=== PATIENT | female | born 1945 | race Native Hawaiian/Other Pacific Islander ===

== ENCOUNTER → 2018-04-26 14:41 | Outpatient (CLI) | payer BC, SELFPAY ==
[2018-04-26 15:23] LABS: Add Manual Diff / Slide Review NO; Basophils Percent Auto 1.1 % (0-2); Eosinophils Percent Auto 6.9 % (2-4); Hematocrit 41.3 % (36-46); Lymphocytes Percent Auto 33.5 % (25-40); Mean Corpuscular HGB Conc 33.8 % (30-36); Mean Corpuscular Volume 88.7 fL (80-100); Monocytes Percent Auto 9.2 % (3-14); Neutrophils Absolute Auto 3100 /uL (3000-5900); Neutrophils Percent Auto 49.3 % (50-75); Platelet Count 232 X10^3/uL (150-400); Red Blood Cell Count 4.66 X10^6/uL (4.0-5.2); Red Cell Distribution Width 13.6 % (11.6-14.8); White Blood Cell Count 6.2 X10^3/uL (4.5-11.0)
[2018-04-26 15:41] LABS: Creatinine Urine Random 288.3 mg/dL
[2018-04-26 15:54] LABS: Alanine Aminotransferase 105 IU/L (9-52); Albumin 4.2 g/dL (3.5-5.0); Albumin Globulin Ratio 1.2 (1.0-2.8); Alkaline Phosphatase 114 U/L (38-126); Aspartate Aminotransferase 73 IU/L (14-36); BUN Creatinine Ratio 22.9 (6-22); Bilirubin Total 0.9 mg/dL (0.2-1.3); Blood Urea Nitrogen 16 mg/dL (7-17); Calcium 9.4 mg/dL (8.4-10.2); Carbon Dioxide 29 mmol/L (22-32); Chloride 106 mmol/L (98-107); Cholesterol 198 mg/dL (140-199); Estimated Glomerular Filt Rate > 60.0 mL/min (>60); Globulin 3.4 g/dL (1.7-4.1); Glucose 117 mg/dL (80-110); HDL Cholesterol 46 mg/dL (40-60); HEMOLYSIS < 15 (0-50); LDL Cholesterol Calculated 122 mg/dL (<100); Sodium 145 mmol/L (137-145); Total Protein 7.6 g/dL (6.3-8.2); Triglycerides 152 mg/dL (35-150)
[2018-04-26 15:58] LABS: Hemoglobin A1C% w Est Avg Glu 7.1 % (4.0-6.0)
== END ==
PROVIDERS: PCP Internal Medicine; Visit Provider Internal Medicine
DX: E78.00 Pure hypercholesterolemia, unspecified (principal); E11.9 Type 2 diabetes mellitus without complications; M15.0 Primary generalized (osteo)arthritis; I10 Essential (primary) hypertension
CPT/HCPCS: 36415; 80053; 80061; 82570; 83036; 85025

== ENCOUNTER → 2018-05-17 09:41 | Outpatient (CLI) | payer BC, SELFPAY ==
--- NOTE | 2018-05-17 | DI.US.S_ITS ---
PROCEDURE: US ABDOMEN COMPLETE INDICATIONS: ELEVATED LFT'S TECHNIQUE: Real-time scanning was performed of the abdominal and retroperitoneal organs, with image documentation. COMPARISON: None. FINDINGS: Liver: Liver is diffusely increased in echogenicity. No focal hepatic abnormalities identified. Normal hepatic size. Gallbladder: No gallstones identified. Normal gallbladder wall. No pericholecystic fluid. Negative sonographic Maldonado sign. Biliary ducts: Intrahepatic bile ducts are non-dilated. Extrahepatic bile duct caliber measures 4.6 mm. Normal is 6-7 mm or less in diameter, or 10 mm or less post-cholecystectomy. Pancreas: Visualized portions of the pancreas are sonographically normal. Spleen: Spleen is normal in size and homogeneous in echotexture. Kidneys: Kidneys are normal in size and echotexture. Right kidney measures 9.9 cm long; left kidney measures 9.5 cm long. No hydronephrosis or nephrolithiasis. No solid masses. Aorta: Visualized aorta is normal in caliber at less than 3 cm. Iliacs: Proximal common iliac arteries are normal in caliber at less than 2.5 cm. IVC: Intrahepatic inferior vena cava is patent. Miscellaneous: No free abdominal fluid. IMPRESSION: 1. Mildly increased hepatic echogenicity noted possibly related to hepatic steatosis but other sources of hepatocellular disease cannot be excluded. Recommend clinical correlation. Dictated by: Hang [place] Interpreted: Loreta Loo MD on 05/17/2018 at 10:18 Approved by: Loreta Loo MD, PhD on 05/17/2018 at 10:23
--- NOTE | 2018-05-17 | DI.RAD.S_ITS ---
This blank DEXA report has been sent in error by the PACS system. The correct and complete report will be forthcoming in 1-2 days. Thank you for your patience and understanding. Dictated by: Bakari Robledo M.D. on 05/17/2018 at 10:20 Approved by: Bakari Robledo M.D. on 05/17/2018 at 10:20
== END ==
PROVIDERS: PCP Internal Medicine; Visit Provider Internal Medicine
DX: R79.89 Other specified abnormal findings of blood chemistry (principal); M81.0 Age-related osteoporosis without current pathological fracture; Z78.0 Asymptomatic menopausal state; E11.9 Type 2 diabetes mellitus without complications
CPT/HCPCS: 76700; 77080

== ENCOUNTER → 2018-07-31 11:47 | Outpatient (CLI) | payer BC, SELFPAY ==
[2018-07-31 12:34] LABS: Alanine Aminotransferase 47 IU/L (9-52); Albumin 4.3 g/dL (3.5-5.0); Albumin Globulin Ratio 1.4 (1.0-2.8); Alkaline Phosphatase 86 U/L (38-126); Aspartate Aminotransferase 33 IU/L (14-36); Bilirubin Total 0.8 mg/dL (0.2-1.3); Bilirubin Unconjugated 0.7 mg/dL (0.0-1.1); Globulin 3.1 g/dL (1.7-4.1); HEMOLYSIS < 15 (0-50); Total Protein 7.4 g/dL (6.3-8.2)
[2018-07-31 12:50] LABS: Hemoglobin A1C% w Est Avg Glu 7.4 % (4.0-6.0)
[2018-07-31 17:28] LABS: Hep C Virus Ab w/Reflex Quant NEGATIVE s/c (NEGATIVE)
== END ==
PROVIDERS: PCP Internal Medicine; Visit Provider Internal Medicine
DX: M81.0 Age-related osteoporosis without current pathological fracture (principal); E11.9 Type 2 diabetes mellitus without complications; R94.5 Abnormal results of liver function studies
CPT/HCPCS: 36415; 80076; 83036; 86803

== ENCOUNTER → 2018-09-06 10:29 | Outpatient (CLI) | payer BC, SELFPAY ==
--- NOTE | 2018-09-06 | DI.MG.S_ITS ---
BILATERAL DIGITAL SCREENING MAMMOGRAM 3D/2D WITH CAD: 09/06/2018 CLINICAL: Routine screening. Comparison is made to exams dated: 03/16/2017 mammogram, 03/15/2016 mammogram, and 02/12/2015 mammogram - [facility]. The tissue of both breasts is heterogeneously dense. This may lower the sensitivity of mammography. Current study was also evaluated with a Computer Aided Detection (CAD) system. No significant masses, calcifications, or other findings are seen in either breast. There has been no significant interval change. IMPRESSION: NEGATIVE There is no mammographic evidence of malignancy. A 1 year screening mammogram is recommended. This exam was interpreted at Station ID: [id number]. NOTE: For mammograms, a report in lay terms will be sent to the patient. Approximately 15% of breast malignancies will not be visualized mammographically. In the management of a palpable breast mass, a negative mammogram must not discourage biopsy of a clinically suspicious lesion. Electronically Signed By: Matt sandoval/pillo:09/06/2018 11:09:44 letter sent: Normal Exam ACR BI-RADS Category 1: Negative [id number]
== END ==
PROVIDERS: PCP Internal Medicine; Visit Provider Internal Medicine
DX: Z12.31 Encounter for screening mammogram for malignant neoplasm of breast (principal)
CPT/HCPCS: 77063; 77067

== ENCOUNTER 2019-04-03 10:18 | Emergency (ER) | payer BC, SELFPAY ==
[2019-04-03 10:29] VITALS: BP 143/69; PULSE 63; RESP 12; TEMP 37.2; O2SAT 98
--- NOTE | 2019-04-03 10:32 | PC.NURSE ---
Slipped and fell on a wet floor at a restaurant. Patient states she had to take a minute to get back up It all happened so fast, I think I landed on my left side reports tightness in left side of mid to lower back and hjp. Ambulatory into department. Position of comfort sitting upright at edge of bed. Denies C-spine tenderness upon palpation. Denies hitting head or any LOC.
--- NOTE | 2019-04-03 11:22 | ED.BACK ---
HPI - Back Pain/Injury <MALA Phelan-BC - Last Filed: 04/03/19 15:22> General Chief Complaint: Back Pain/Injury Stated Complaint: SLIPPED AND FELL AT RESTUARNT Time Seen by Provider: 04/03/19 11:04 Source: patient Mode of arrival: ambulatory Limitations: no limitations History of Present Illness HPI Narrative: The patient is a 73-year-old female nonsmoker with history of elevated cholesterol who presents after a ground level fall this morning. She states she slipped and fell at a restaurant, due to water on the floor landing on the tile floor. She landed on her left side. She denies any incontinence of bowel, incontinence of bladder saddle anesthesia. She does not believe that she hit her head. She denies any nausea vomiting new visual deficits. She complains of some midback pain, left hip pain. She ambulated into the emergency department. She has not taken anything for pain prior to arrival. She denies any numbness or tingling. She denies any central neck pain. Related Data Home Medications Medication Instructions Recorded Confirmed [employer] Vitamins 1 packet PO BID 04/03/19 04/03/19 atorvastatin 40 mg PO QPM 04/03/19 04/03/19 latanoprost 1 drp OPHTHALMIC (EYE) BEDTIME 04/03/19 04/03/19 metformin 500 mg PO BID 04/03/19 04/03/19 Allergies Allergy/AdvReac Type Severity Reaction Status Date / Time Sulfa (Sulfonamide Allergy Mild Verified 04/03/19 12:33 Antibiotics) [SULFA (SULFONAMIDE ANTIBIOTICS)] Review of Systems <EYAD Phelan - Last Filed: 04/03/19 15:22> Review of Systems GENERAL: Denies chills, fatigue, malaise, fever, sweats. HEENT: Denies sinus pain, ear pain, sore throat, difficulty swallowing, dizziness. RESPIRATORY: Denies dyspnea, cough, wheezing, hemoptysis, sputum. CARDIOVASCULAR: Denies chest pain, palpitations, orthopnea, edema, GASTROINTESTINAL: Denies nausea, vomiting, abdominal pain, diarrhea, constipation, melena. : Denies dysuria, frequency, incontinence, hematuria, urinary retention. MUSCULOSKELETAL: See HPI SKIN: Denies rash, skin lesions, or other NEUROLOGIC: Denies weakness, headache, numbness, change in speech, confusion, seizures, incoordination. PSYCHIATRIC: No concerning psychosocial issues. 12 point review of systems is negative except for those stated above PFSH <LYNETTE Phelan - Last Filed: 04/03/19 15:22> Medical History (Updated 04/03/19 @ 12:41 by LYNETTE Phelan) Hyperlipidemia (Acute) Social History Smoking Status: Never smoker Social History Smoking Status: Never smoker Exam <LYNETTE Phelan - Last Filed: 04/03/19 15:22> Narrative Exam Narrative: GENERAL: Elderly female sitting on stretcher in no acute distress HEAD: Atraumatic. Normocephalic. No temporal or scalp tenderness. EYES: Pupils equal round and reactive. Extraocular motions intact. No scleral icterus. No injection or drainage. ENT: Nose without bleeding, purulent drainage or septal hematoma. Throat without erythema, tonsillar hypertrophy or exudate. Uvula midline. Airway patent. NECK: Trachea midline. No JVD or lymphadenopathy. Supple, nontender, no meningeal signs. CARDIOVASCULAR: Regular rate and rhythm RESPIRATORY: Clear to auscultation. Breath sounds equal bilaterally. No wheezes, rales, or rhonchi. No cough. No increased respiratory effort. No accessory muscle use. GASTROINTESTINAL: Abdomen soft, non-tender, nondistended. No hepato-splenomegaly, or palpable masses. No guarding. EXTREMITIES: No clubbing, cyanosis, or edema. No joint tenderness, effusion, or edema noted. Strength is equal upper and lower extremities bilaterally. Some pain to left hip palpation. Pelvis is stable to rock. BACK: Nontender without deformity or crepitance. No flank tenderness. No pain to midline C-spine palpation. Pain to T and L-spine palpation. Pain to bilateral paraspinal muscle palpation of T and L-spine. Pain to right trapezius palpation. NEURO: AOx3. Strength is equal upper and lower extremities bilaterally. Stable gait. No gross cranial nerve deficit. Clear speech. SKIN: No rash or erythema or ecchymosis on visible skin. Initial Vital Signs Initial Vital Signs: Vital Signs Temperature 98.9 F 04/03/19 10:29 Pulse Rate 63 04/03/19 10:29 Respiratory Rate 12 04/03/19 10:29 Blood Pressure 143/69 H 04/03/19 10:29 Pulse Oximetry 98 04/03/19 10:29 <Stacy Lara DO - Last Filed: 04/04/19 21:15> Initial Vital Signs Initial Vital Signs: Vital Signs Temperature 98.9 F 04/03/19 10:29 Pulse Rate 63 04/03/19 10:29 Respiratory Rate 12 04/03/19 10:29 Blood Pressure 143/69 H 04/03/19 10:29 Pulse Oximetry 98 04/03/19 10:29 Scores <LYNETTE Phelan - Last Filed: 04/03/19 15:22> GCS [place] coma scale eye opening: Spontaneous [place] coma scale verbal response: Orientated [place] coma scale motor response: Obey commands [place] coma scale total score: 15 Nexus Score for C-Spine Focal Neurologic deficit present: No Midline spinal tenderness present: No Altered level of conciousness present: No Intoxication present: No Distracting Injury Present: No Nexus Criteria for C-spine: 0 Course <LYNETTE Phelan - Last Filed: 04/03/19 15:22> Orders Ordered: Discontinued Medications Ketorolac Tromethamine (Toradol) 30 mg IM NOW ONE Stop: 04/03/19 11:22 Last Admin: 04/03/19 11:58 Dose: 30 mg Methocarbamol (Robaxin) 500 mg PO NOW ONE Stop: 04/03/19 11:22 Last Admin: 04/03/19 12:00 Dose: 500 mg Vital Signs - 8 hr 04/03/19 10:29 Temperature 98.9 F Pulse Rate 63 Respiratory Rate 12 Blood Pressure 143/69 H Pulse Oximetry 98 <DO Dajuan Mcghee Last Filed: 04/04/19 21:15> Orders Ordered: Discontinued Medications Ketorolac Tromethamine (Toradol) 30 mg IM NOW ONE Stop: 04/03/19 11:22 Last Admin: 04/03/19 11:58 Dose: 30 mg Methocarbamol (Robaxin) 500 mg PO NOW ONE Stop: 04/03/19 11:22 Last Admin: 04/03/19 12:00 Dose: 500 mg Vital Signs - 8 hr 04/03/19 10:29 Temperature 98.9 F Pulse Rate 63 Respiratory Rate 12 Blood Pressure 143/69 H Pulse Oximetry 98 MDM - Back Pain/Injury <LYNETTE Phelan - Last Filed: 04/03/19 15:22> Imaging Data Hip x-ray: Radiologist's impression: Collette Mcqueen 73 F [address] [address] XRay Report Signed Patient: Collette Mcqueen CMR#: [id number] : 6Acct:[id number] Age/Sex: 73 / FDate of Service: 04/03/19 Loc: ED Accession Number: [id number] Procedure: XR hip w pel if done LT 2V Ordering Provider: Kimberly Cornelius PROCEDURE: XR HIP W PEL IF DONE LT 2V INDICATIONS: pain sp glf TECHNIQUE: 2 views of the hip were acquired. COMPARISON: [facility], , PELVIS 1 OR 2 VIEWS, 08/03/2017, 17:09. FINDINGS: Bones: No fractures or dislocations. No suspicious bony lesions. The visualized pelvic ring appears intact. Mild degenerative changes of the bilateral hips are present. Irregularity of the greater trochanters and the anterior margins of the bilateral iliac bones are similar to the prior study. Moderate degenerative changes of the lower lumbar spine and pubis symphysis are present. Soft tissues: No suspicious soft tissue calcifications or masses. IMPRESSION: Mild degenerative changes of the left hip. No fractures. Dictated by: Sunny Rocha M.D. on 04/03/2019 at 10:48 Approved by: Sunny Rocha M.D. on 04/03/2019 at 10:49 Lumbar spine x-ray: Radiologist's impression: [address] [address] XRay Report Signed Patient: Collette Mcqueen CMR#: [id number] : 6Acct:[id number] Age/Sex: 73 / FDate of Service: 04/03/19 Loc: ED Accession Number: [id number] Procedure: XR lumbar spine 2-3V Ordering Provider: Ashli,Kimberly OIL EXPELLER OPERATOR-BC PROCEDURE: XR LUMBAR SPINE 2-3V INDICATIONS: pain sp glf TECHNIQUE: 3 views of the lumbar spine were acquired. COMPARISON: [facility], [place], L-SPINE 2-3 VIEWS, 08/03/2016, 13:30. FINDINGS: Bones: There are 5 lumbar-type vertebral bodies. The lowest intervertebral disk space is designated as L5-S1. The vertebral body heights are well-maintained without evidence to suggest an acute compression fracture. The bone mineralization is within normal limits. Moderate multilevel degenerative changes of the lumbar spine are more prominent involving the lower lumbar facet joints. Intervertebral disc heights are relatively well-maintained. Degenerative changes of the bilateral sacroiliac joints are present. Soft tissues: The soft tissues of the imaged abdomen and pelvis are within normal limits. IMPRESSION: Moderate degenerative changes of the lumbar spine are more prominent involving the lower lumbar facet joints. Dictated by: Sunny Rocha M.D. on 04/03/2019 at 10:51 Approved by: Sunny Rocha M.D. on 04/03/2019 at 10:54 T-spine x-ray: Radiologist's impression: [place] [address] XRay Report Signed Patient: Collette Mcqueen CMR#: [id number] : 6Acct:[id number] Age/Sex: 73 / FDate of Service: 04/03/19 Loc: ED Accession Number: [id number] Procedure: XR thoracic spine 2V Ordering Provider: Kimberly Cornelius OIL EXPELLER OPERATOR-BC PROCEDURE: XR THORACIC SPINE 2V INDICATIONS: pain status post fall today TECHNIQUE: 3 views of the thoracic spine were acquired. COMPARISON: None. FINDINGS: Bones: On the lateral views, the cervicothoracic junction is adequately visualized and the alignment through this region is within normal limits. The vertebral body heights are within normal limits throughout the thoracic spine without evidence to suggest acute compression fracture. The bone mineralization is within normal limits. Moderate multilevel degenerative changes of the thoracic spine are present demonstrating moderate disc height loss and disc osteophyte complexes. Degenerative changes of the imaged lumbar and cervical spines are present, but not adequately characterized. Soft tissues: The imaged overlying soft tissues of the chest are within normal limits. IMPRESSION: Moderate degenerative changes of the thoracic spine without an acute compression fracture. Dictated by: Sunny Rocha M.D. on 04/03/2019 at 10:49 Approved by: Sunny Rocha M.D. on 04/03/2019 at 10:50 [facility] Narrative Medical decision making narrative: The patient is a 73-year-old female who presents after ground level fall earlier today. She slipped and fell landing on tile. She states she landed on her left hip and low back, did not hit her head. Her C-spine was cleared her nexus criteria. She is GCS 15, has no complaints of hitting her head and is not on any blood thinners but no LOC. Films are obtained of her back as well as her hip, which came back negative for any acute changes. She has no red flag symptoms of incontinence bowel, incontinence of bladder saddle anesthesia. I discussed at length coming back to the ER for any acute concerns such as incontinence bowel, incontinence of bladder saddle anesthesia confusion etc. She was given Toradol as well as Robaxin in the Emergency Department. 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 She ambulates well throughout her stay in the emergency department. Discussed at length follow up with PCP. Discussed coming back to the ER for any acute concerns such as incontinence of bowel, incontinence of bladder saddle anesthesia or confusion. Patient states understanding of return precautions as well as follow-up care. Discharge Plan Departure Patient Disposition: Home Clinical Impression: Fall from ground level, Muscle spasm Acute hip pain Qualifiers: Laterality: left Qualified Code(s): M25.552 - Pain in left hip Low back pain Qualifiers: Chronicity: acute Back pain laterality: left Sciatica presence: without sciatica Qualified Code(s): M54.5 - Low back pain Discharge Date/Time: 04/03/19 12:50 Interventions: ED Discharge Assessment Last Done: 04/03/19 12:50 Instructions: DI for Low Back Pain, How to Prevent Falls, DI for Back Spasm, DI for Back Strain or Sprain Activity Restrictions/Additional Instructions: Today we did x-rays of your left hip, pelvis, thoracic spine and lumbar spine. These all came back with no acute changes. We have given you anti-inflammatories as well as a muscle relaxer, however you have declined further medications or prescriptions. Please wait 6 hours before taking NSAIDs such as ibuprofen. Please follow up with primary care provider. Please come back to the emergency department for any acute concerns such as confusion, concern of heart attack or stroke, incontinence of bowel incontinence of bladder or numbness in your groin. Prescriptions: No Action latanoprost 0.005 % drops 1 drp ophthalmic (eye) BEDTIME RF: 0 atorvastatin 40 mg tablet 40 mg PO QPM RF: 0 metformin 500 mg tablet 500 mg PO BID RF: 0 [employer] Vitamins 1 packet PO BID RF: 0 Referrals: Wily Carter MD [Primary Care Provider] - <Stacy Lara DO - Last Filed: 04/04/19 21:15> Cosign ED Attending Samiraature Attestation: I was immediately available in the department for consultation. Documentation has been reviewed. I agree with assessment and plan.
--- NOTE | 2019-04-03 11:30 | ED_ITS ---
HPI - Back Pain/Injury <MALA Phelan-BC - Last Filed: 04/03/19 15:22> General Chief Complaint: Back Pain/Injury Stated Complaint: SLIPPED AND FELL AT RESTUARNT Time Seen by Provider: 04/03/19 11:04 Source: patient Mode of arrival: ambulatory Limitations: no limitations History of Present Illness HPI Narrative: The patient is a 73-year-old female nonsmoker with history of elevated cholesterol who presents after a ground level fall this morning. She states she slipped and fell at a restaurant, due to water on the floor landing on the tile floor. She landed on her left side. She denies any incontinence of bowel, incontinence of bladder saddle anesthesia. She does not believe that she hit her head. She denies any nausea vomiting new visual deficits. She complains of some midback pain, left hip pain. She ambulated into the emergency department. She has not taken anything for pain prior to arrival. She denies any numbness or tingling. She denies any central neck pain. Related Data Home Medications Medication Instructions Recorded Confirmed [employer] Vitamins 1 packet PO BID 04/03/19 04/03/19 atorvastatin 40 mg PO QPM 04/03/19 04/03/19 latanoprost 1 drp OPHTHALMIC (EYE) BEDTIME 04/03/19 04/03/19 metformin 500 mg PO BID 04/03/19 04/03/19 Allergies Allergy/AdvReac Type Severity Reaction Status Date / Time Sulfa (Sulfonamide Allergy Mild Verified 04/03/19 12:33 Antibiotics) [SULFA (SULFONAMIDE ANTIBIOTICS)] Review of Systems <EYAD Phelan - Last Filed: 04/03/19 15:22> Review of Systems GENERAL: Denies chills, fatigue, malaise, fever, sweats. HEENT: Denies sinus pain, ear pain, sore throat, difficulty swallowing, dizziness. RESPIRATORY: Denies dyspnea, cough, wheezing, hemoptysis, sputum. CARDIOVASCULAR: Denies chest pain, palpitations, orthopnea, edema, GASTROINTESTINAL: Denies nausea, vomiting, abdominal pain, diarrhea, constipation, melena. : Denies dysuria, frequency, incontinence, hematuria, urinary retention. MUSCULOSKELETAL: See HPI SKIN: Denies rash, skin lesions, or other NEUROLOGIC: Denies weakness, headache, numbness, change in speech, confusion, seizures, incoordination. PSYCHIATRIC: No concerning psychosocial issues. 12 point review of systems is negative except for those stated above PFSH <LYNETTE Phelan - Last Filed: 04/03/19 15:22> Medical History (Updated 04/03/19 @ 12:41 by LYNETTE Phelan) Hyperlipidemia (Acute) Social History Smoking Status: Never smoker Social History Smoking Status: Never smoker Exam <LYNETTE Phelan - Last Filed: 04/03/19 15:22> Narrative Exam Narrative: GENERAL: Elderly female sitting on stretcher in no acute distress HEAD: Atraumatic. Normocephalic. No temporal or scalp tenderness. EYES: Pupils equal round and reactive. Extraocular motions intact. No scleral icterus. No injection or drainage. ENT: Nose without bleeding, purulent drainage or septal hematoma. Throat without erythema, tonsillar hypertrophy or exudate. Uvula midline. Airway patent. NECK: Trachea midline. No JVD or lymphadenopathy. Supple, nontender, no meningeal signs. CARDIOVASCULAR: Regular rate and rhythm RESPIRATORY: Clear to auscultation. Breath sounds equal bilaterally. No wheezes, rales, or rhonchi. No cough. No increased respiratory effort. No accessory muscle use. GASTROINTESTINAL: Abdomen soft, non-tender, nondistended. No hepato- splenomegaly, or palpable masses. No guarding. EXTREMITIES: No clubbing, cyanosis, or edema. No joint tenderness, effusion, or edema noted. Strength is equal upper and lower extremities bilaterally. Some pain to left hip palpation. Pelvis is stable to rock. BACK: Nontender without deformity or crepitance. No flank tenderness. No pain to midline C-spine palpation. Pain to T and L-spine palpation. Pain to bilateral paraspinal muscle palpation of T and L-spine. Pain to right trapezius palpation. NEURO: AOx3. Strength is equal upper and lower extremities bilaterally. Stable gait. No gross cranial nerve deficit. Clear speech. SKIN: No rash or erythema or ecchymosis on visible skin. Initial Vital Signs Initial Vital Signs: Vital Signs Temperature 98.9 F 04/03/19 10:29 Pulse Rate 63 04/03/19 10:29 Respiratory Rate 12 04/03/19 10:29 Blood Pressure 143/69 H 04/03/19 10:29 Pulse Oximetry 98 04/03/19 10:29 <Stacy Lara DO - Last Filed: 04/04/19 21:15> Initial Vital Signs Initial Vital Signs: Vital Signs Temperature 98.9 F 04/03/19 10:29 Pulse Rate 63 04/03/19 10:29 Respiratory Rate 12 04/03/19 10:29 Blood Pressure 143/69 H 04/03/19 10:29 Pulse Oximetry 98 04/03/19 10:29 Scores <LYNETTE Phelan - Last Filed: 04/03/19 15:22> GCS [place] coma scale eye opening: Spontaneous [place] coma scale verbal response: Orientated [place] coma scale motor response: Obey commands [place] coma scale total score: 15 Nexus Score for C-Spine Focal Neurologic deficit present: No Midline spinal tenderness present: No Altered level of conciousness present: No Intoxication present: No Distracting Injury Present: No Nexus Criteria for C-spine: 0 Course <LYNETTE Phelan - Last Filed: 04/03/19 15:22> Orders Ordered: Discontinued Medications Ketorolac Tromethamine (Toradol) 30 mg IM NOW ONE Stop: 04/03/19 11:22 Last Admin: 04/03/19 11:58 Dose: 30 mg Methocarbamol (Robaxin) 500 mg PO NOW ONE Stop: 04/03/19 11:22 Last Admin: 04/03/19 12:00 Dose: 500 mg Vital Signs - 8 hr 04/03/19 10:29 Temperature 98.9 F Pulse Rate 63 Respiratory Rate 12 Blood Pressure 143/69 H Pulse Oximetry 98 <DO Dajuan Mcghee Last Filed: 04/04/19 21:15> Orders Ordered: Discontinued Medications Ketorolac Tromethamine (Toradol) 30 mg IM NOW ONE Stop: 04/03/19 11:22 Last Admin: 04/03/19 11:58 Dose: 30 mg Methocarbamol (Robaxin) 500 mg PO NOW ONE Stop: 04/03/19 11:22 Last Admin: 04/03/19 12:00 Dose: 500 mg Vital Signs - 8 hr 04/03/19 10:29 Temperature 98.9 F Pulse Rate 63 Respiratory Rate 12 Blood Pressure 143/69 H Pulse Oximetry 98 MDM - Back Pain/Injury <LYNETTE Phelan - Last Filed: 04/03/19 15:22> Imaging Data Hip x-ray: Radiologist's impression: Collette Mcqueen 73 F [address] [address] XRay Report Signed Patient: Collette Mcqueen CMR#: [id number] : 6Acct:[id number] Age/Sex: 73 / FDate of Service: 04/03/19 Loc: ED Accession Number: [id number] Procedure: XR hip w pel if done LT 2V Ordering Provider: Kimberly Cornelius PROCEDURE: XR HIP W PEL IF DONE LT 2V INDICATIONS: pain sp glf TECHNIQUE: 2 views of the hip were acquired. COMPARISON: [facility], , PELVIS 1 OR 2 VIEWS, 08/03/2017, 17:09. FINDINGS: Bones: No fractures or dislocations. No suspicious bony lesions. The visualized pelvic ring appears intact. Mild degenerative changes of the bilateral hips are present. Irregularity of the greater trochanters and the anterior margins of the bilateral iliac bones are similar to the prior study. Moderate degenerative changes of the l ower lumbar spine and pubis symphysis are present. Soft tissues: No suspicious soft tissue calcifications or masses. IMPRESSION: Mild degenerative changes of the left hip. No fractures. Dictated by: Sunny Rocha M.D. on 04/03/2019 at 10:48 Approved by: Sunny Rocha M.D. on 04/03/2019 at 10:49 Lumbar spine x-ray: Radiologist's impression: [address] [address] XRay Report Signed Patient: Collette Mcqueen CMR#: [id number] : 6Acct:[id number] Age/Sex: 73 / FDate of Service: 04/03/19 Loc: ED Accession Number: [id number] Procedure: XR lumbar spine 2-3V Ordering Provider: Garza,Kimberly RECREATION AIDE-BC PROCEDURE: XR LUMBAR SPINE 2-3V INDICATIONS: pain sp glf TECHNIQUE: 3 views of the lumbar spine were acquired. COMPARISON: [facility], , L-SPINE 2-3 VIEWS, 08/03/2016, 13:30. FINDINGS: Bones: There are 5 lumbar-type vertebral bodies. The lowest intervertebral disk space is designated as L5-S1. The vertebral body heights are well-maintained without evidence to suggest an acute compression fracture. The bone mineralization is within normal limits. Moderate multilevel degenerative changes of the lumbar spine are more prominent involving the lower lumbar facet joints. Intervertebral disc heights are relatively well-maintained. Degenerative changes of the bilateral sacroiliac joints are present. Soft tissues: The soft tissues of the imaged abdomen and pelvis are within normal limits. IMPRESSION: Moderate degenerative changes of the lumbar spine are more prominent involving the lower lumbar facet joints. Dictated by: Sunny Rocha M.D. on 04/03/2019 at 10:51 Approved by: Sunny Rocha M.D. on 04/03/2019 at 10:54 T-spine x-ray: Radiologist's impression: [place] [address] XRay Report Signed Patient: Collette Mcqueen CMR#: [id number] : 6Acct:[id number] Age/Sex: 73 / FDate of Service: 04/03/19 Loc: ED Accession Number: [id number] Procedure: XR thoracic spine 2V Ordering Provider: Kimberly Cornelius RECREATION AIDE-BC PROCEDURE: XR THORACIC SPINE 2V INDICATIONS: pain status post fall today TECHNIQUE: 3 views of the thoracic spine were acquired. COMPARISON: None. FINDINGS: Bones: On the lateral views, the cervicothoracic junction is adequately visualized and the alignment through this region is within normal limits. The vertebral body heights are within normal limits throughout the thoracic spine without evidence to suggest acute compression fracture. The bone mineralization is within normal limits. Moderate multilevel degenerative changes of the thoracic spine are present demonstrating moderate disc height loss and disc osteophyte complexes. Degenerative changes of the imaged lumbar and cervical spines are present, but not adequately characterized. Soft tissues: The imaged overlying soft tissues of the chest are within normal limits. IMPRESSION: Moderate degenerative changes of the thoracic spine without an acute compression fracture. Dictated by: Sunny Rocha M.D. on 04/03/2019 at 10:49 Approved by: Sunny Rocha M.D. on 04/03/2019 at 10:50 [facility] Narrative Medical decision making narrative: The patient is a 73-year-old female who presents after ground level fall earlier today. She slipped and fell landing on tile. She states she landed on her left hip and low back, did not hit her head. Her C-spine was cleared her nexus criteria. She is GCS 15, has no complaints of hitting her head and is not on any blood thinners but no LOC. Films are obtained of her back as well as her hip, which came back negative for any acute changes. She has no red flag symptoms of incontinence bowel, incontinence of b ladder saddle anesthesia. I discussed at length coming back to the ER for any acute concerns such as incontinence bowel, incontinence of bladder saddle anesthesia confusion etc. She was given Toradol as well as Robaxin in the Emergency Department. 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 She ambulates well throughout her stay in the emergency department. Discussed at length follow up with PCP. Discussed coming back to the ER for any acute concerns such as incontinence of bowel, incontinence of bladder saddle anesthesia or confusion. Patient states understanding of return precautions as well as follow-up care. Discharge Plan Departure Patient Disposition: Home Clinical Impression: Fall from ground level, Muscle spasm Acute hip pain Qualifiers: Laterality: left Qualified Code(s): M25.552 - Pain in left hip Low back pain Qualifiers: Chronicity: acute Back pain laterality: left Sciatica presence: without sciatica Qualified Code(s): M54.5 - Low back pain Discharge Date/Time: 04/03/19 12:50 Interventions: ED Discharge Assessment Last Done: 04/03/19 12:50 Instructions: DI for Low Back Pain, How to Prevent Falls, DI for Back Spasm, DI for Back Strain or Sprain Activity Restrictions/Additional Instructions: Today we did x-rays of your left hip, pelvis, thoracic spine and lumbar spine. These all came back with no acute changes. We have given you anti-inflammatories as well as a muscle relaxer, however you have declined further medications or prescriptions. Please wait 6 hours before taking NSAIDs such as ibuprofen. Please follow up with primary care provider. Please come back to the emergency department for any acute concerns such as confusion, concern of heart attack or stroke, incontinence of bowel incontinence of bladder or numbness in your groin. Prescriptions: No Action latanoprost 0.005 % drops 1 drp ophthalmic (eye) BEDTIME RF: 0 atorvastatin 40 mg tablet 40 mg PO QPM RF: 0 metformin 500 mg tablet 500 mg PO BID RF: 0 [employer] Vitamins 1 packet PO BID RF: 0 Referrals: Wily Carter MD [Primary Care Provider] - <Stacy Lara DO - Last Filed: 04/04/19 21:15> Cosign ED Attending Samiraature Attestation: I was immediately available in the department for consultation. Documentation has been reviewed. I agree with assessment and plan.
[2019-04-03] MEDS: KETOROLAC 60 MG/2 ML VIAL 30 MG IM (11:58)
[2019-04-03] MEDS: METHOCARBAMOL 500 MG TABLET PO (12:00)
== END 2019-04-03 12:50 | disposition home or self-care (01) ==
PROVIDERS: Emergency Provider Nurse Practitioner Family; PCP Internal Medicine
DX: M25.552 Pain in left hip (principal); M54.5 Low back pain; W01.0XXA Fall on same level from slipping, tripping and stumbling without subsequent striking against object, initial encounter
CPT/HCPCS: 72070; 72100; 73502; 96372; 99282; 99283; J1885

== ENCOUNTER → 2019-10-17 18:45 | Outpatient (ROUT) | payer BC, SELFPAY ==
[2019-10-17 19:10] LABS: Alanine Aminotransferase 22 IU/L (<35); Albumin 4.2 g/dL (3.5-5.0); Albumin Globulin Ratio 1.3 (1.0-2.8); Alkaline Phosphatase 69 U/L (38-126); Aspartate Aminotransferase 30 IU/L (14-36); BUN Creatinine Ratio 31.4 (6-22); Bilirubin Total 0.6 mg/dL (0.2-1.3); Blood Urea Nitrogen 22 mg/dL (7-17); Calcium 9.8 mg/dL (8.4-10.2); Carbon Dioxide 27 mmol/L (22-32); Chloride 106 mmol/L (98-107); Estimated Glomerular Filt Rate > 60.0 mL/min (>60); Globulin 3.2 g/dL (1.7-4.1); Glucose 80 mg/dL (80-110); HEMOLYSIS < 15 (0-50); Potassium 4.2 mmol/L (3.4-5.1); Sodium 142 mmol/L (137-145); Total Protein 7.4 g/dL (6.3-8.2)
== END ==
PROVIDERS: PCP Internal Medicine; Visit Provider Internal Medicine
DX: K75.81 Nonalcoholic steatohepatitis (NASH) (principal)
CPT/HCPCS: 80053

== ENCOUNTER → 2019-10-23 11:47 | Outpatient (CLI) | payer BC, MEDICARE, SELFPAY ==
--- NOTE | 2019-10-23 11:53 | DI.MG.S_ITS ---
BILATERAL DIGITAL SCREENING MAMMOGRAM 3D/2D WITH CAD: 10/23/2019 CLINICAL: Routine screening. Comparison is made to exams dated: 09/06/2018 mammogram, 03/16/2017 mammogram, and 03/15/2016 mammogram - [facility]. The tissue of both breasts is heterogeneously dense. This may lower the sensitivity of mammography. Current study was also evaluated with a Computer Aided Detection (CAD) system. No significant masses, calcifications, or other findings are seen in either breast. There has been no significant interval change. IMPRESSION: NEGATIVE There is no mammographic evidence of malignancy. A 1 year screening mammogram is recommended. This exam was interpreted at Station ID: [id number]. NOTE: For mammograms, a report in lay terms will be sent to the patient. Approximately 15% of breast malignancies will not be visualized mammographically. In the management of a palpable breast mass, a negative mammogram must not discourage biopsy of a clinically suspicious lesion. Electronically Signed By: Israel moreno/pillo:10/23/2019 13:25:39 letter sent: Normal Exam ACR BI-RADS Category 1: Negative [id number]
== END ==
PROVIDERS: PCP Internal Medicine; Referring Provider Internal Medicine; Visit Provider Internal Medicine
DX: Z12.31 Encounter for screening mammogram for malignant neoplasm of breast (principal)
CPT/HCPCS: 77063; 77067

== ENCOUNTER → 2019-12-20 13:31 | Outpatient (CLI) | payer BC, SELFPAY ==
--- NOTE | 2019-12-20 | DI.RAD.S_ITS ---
PROCEDURE: XR HAND LT MIN 3V INDICATIONS: ARTHRAIGLE OF HAND TECHNIQUE: 3 views of the hand(s) acquired. COMPARISON: None. FINDINGS: Bones: No fractures or dislocations. Carpal bones are normally aligned. No suspicious bony lesions. First CMC and triscaphe joint degeneration. Diffuse interphalangeal joint degeneration. Soft tissues: No suspicious soft tissue calcifications. IMPRESSION: Degenerative joint disease as above Dictated by: Federico Pink M.D. on 12/20/2019 at 15:00 Approved by: Federico Pink M.D. on 12/20/2019 at 15:02
--- NOTE | 2019-12-20 | DI.RAD.S_ITS ---
PROCEDURE: XR HAND RT MIN 3V INDICATIONS: ARTHERAIGLE OF THE HAND TECHNIQUE: 3 views of the hand(s) acquired. COMPARISON: None. FINDINGS: Bones: No fractures or dislocations. Carpal bones are normally aligned. No suspicious bony lesions. First CMC and triscaphe joint degeneration diffuse interphalangeal joint degeneration. Marginal lucency projecting at the second MCP joint. Distal radial ulnar joint degeneration Soft tissues: No suspicious soft tissue calcifications. IMPRESSION: Diffuse right hand osteoarthritis Dictated by: Federico Pink M.D. on 12/20/2019 at 16:01 Approved by: Federico Pink M.D. on 12/20/2019 at 16:03
[2019-12-20 16:36] LABS: Add Manual Diff / Slide Review NO; Basophils Absolute Auto 100 /uL (0-100); Eosinophils Absolute Auto 200 /uL (0-450); Eosinophils Percent Auto 3.4 % (2-4); Hematocrit 41.2 % (36-46); Hemoglobin 13.8 g/dL (12.0-16.0); Lymphocytes Absolute Auto 1900 /uL (1100-4500); Lymphocytes Percent Auto 29.9 % (25-40); Mean Corpuscular HGB Conc 33.6 % (30-36); Mean Corpuscular Hemoglobin 30.1 PG (26-34); Mean Corpuscular Volume 89.8 fL (80-100); Monocytes Absolute Auto 400 /uL (0-900); Monocytes Percent Auto 6.7 % (3-14); Neutrophils Absolute Auto 3800 /uL (1500-7000); Platelet Count 207 X10^3/uL (150-400); Red Blood Cell Count 4.59 X10^6/uL (4.0-5.2); Red Cell Distribution Width 13.5 % (11.6-14.8); White Blood Cell Count 6.4 X10^3/uL (4.5-11.0)
[2019-12-20 17:15] LABS: Erythrocyte Sedimentation Rate 16 MM/HR (0-20)
[2019-12-20 17:16] LABS: C-Reactive Protein Quant < 0.5 mg/dL (<1.0); Rheumatoid Factor < 8.6 IU/mL (<12.0)
[2019-12-23 21:41] LABS: CCP Antibodies IgG/IgA 31 units (0-19)
== END ==
PROVIDERS: PCP Internal Medicine; Referring Provider Student in an Organized Health Care Education/Training Program; Visit Provider Student in an Organized Health Care Education/Training Program
DX: M25.549 Pain in joints of unspecified hand (principal)
CPT/HCPCS: 36415; 73130; 85025; 85651; 86140; 86200; 86430

== ENCOUNTER → 2020-06-18 13:43 | Outpatient (CLI) | payer BC, SELFPAY | PROVIDERS: PCP Internal Medicine; Referring Provider Internal Medicine; Visit Provider Internal Medicine | DX: M81.0 Age-related osteoporosis without current pathological fracture (principal); Z78.0 Asymptomatic menopausal state; M15.0 Primary generalized (osteo)arthritis; Z82.62 Family history of osteoporosis | CPT/HCPCS: 77080 ==

== ENCOUNTER → 2020-10-12 11:47 | Outpatient (CLI) | payer BC, SELFPAY ==
[2020-10-12 13:38] LABS: Hemoglobin A1C% w Est Avg Glu 6.1 % (4.0-6.0)
[2020-10-12 13:55] LABS: Alanine Aminotransferase 28 IU/L (<35); Albumin 4.1 g/dL (3.5-5.0); Albumin Globulin Ratio 1.4 (1.0-2.8); Alkaline Phosphatase 74 U/L (38-126); Aspartate Aminotransferase 32 IU/L (14-36); BUN Creatinine Ratio 18.2 (6-22); Bilirubin Total 0.9 mg/dL (0.2-1.3); Blood Urea Nitrogen 14 mg/dL (7-17); Calcium 9.6 mg/dL (8.4-10.2); Carbon Dioxide 29 mmol/L (22-32); Chloride 104 mmol/L (98-107); Cholesterol 144 mg/dL (140-199); Estimated Glomerular Filt Rate > 60.0 mL/min (>60); Globulin 2.9 g/dL (1.7-4.1); Glucose 103 mg/dL (80-110); HDL Cholesterol 57 mg/dL (40-60); HEMOLYSIS < 15 (0-50); LDL Cholesterol Calculated 73 mg/dL (<100); Potassium 4.4 mmol/L (3.4-5.1); Sodium 139 mmol/L (137-145); Triglycerides 71 mg/dL (35-150)
== END ==
PROVIDERS: PCP Internal Medicine; Referring Provider Internal Medicine; Visit Provider Internal Medicine
DX: E11.9 Type 2 diabetes mellitus without complications (principal)
CPT/HCPCS: 36415; 80053; 80061; 83036

== ENCOUNTER → 2020-12-24 10:01 | Outpatient (CLI) | payer BC, SELFPAY ==
--- NOTE | 2020-12-24 | DI.MG.S_ITS ---
BILATERAL DIGITAL SCREENING MAMMOGRAM 3D/2D WITH CAD: 12/24/2020 CLINICAL: Routine screening. Comparison is made to exams dated: 10/23/2019 mammogram, 09/06/2018 mammogram, and 03/16/2017 mammogram - [facility]. The tissue of both breasts is heterogeneously dense. This may lower the sensitivity of mammography. Current study was also evaluated with a Computer Aided Detection (CAD) system. No significant masses, calcifications, or other findings are seen in either breast. There has been no significant interval change. IMPRESSION: NEGATIVE There is no mammographic evidence of malignancy. A 1 year screening mammogram is recommended. This exam was interpreted at Station ID: [id number]. NOTE: For mammograms, a report in lay terms will be sent to the patient. Approximately 15% of breast malignancies will not be visualized mammographically. In the management of a palpable breast mass, a negative mammogram must not discourage biopsy of a clinically suspicious lesion. Electronically Signed By: Matt sandoval/pillo:12/24/2020 10:20:44 letter sent: Normal Exam ACR BI-RADS Category 1: Negative [id number]
== END ==
PROVIDERS: PCP Internal Medicine; Referring Provider Internal Medicine; Visit Provider Internal Medicine
DX: Z12.31 Encounter for screening mammogram for malignant neoplasm of breast (principal)
CPT/HCPCS: 77063; 77067

== ENCOUNTER → 2022-03-07 09:27 | Outpatient (CLI) | payer BC, SELFPAY ==
--- NOTE | 2022-03-07 | DI.MG.S_ITS ---
BILATERAL DIGITAL DIAGNOSTIC MAMMOGRAM 3D/2D: 03/07/2022 CLINICAL: Left breast pain. Comparison is made to exams dated: 12/24/2020 mammogram, 10/23/2019 mammogram, 09/06/2018 mammogram, 03/16/2017 mammogram, and 03/15/2016 mammogram - [facility]. The tissue of both breasts is heterogeneously dense. This may lower the sensitivity of mammography. No significant masses, calcifications, or other findings are seen in either breast. There has been no significant interval change. IMPRESSION: NEGATIVE There is no mammographic evidence of malignancy. No abnormality in the region of left breast pain. Exam findings were conveyed to the patient. Patient is advised to monitor for significant change. Clinical follow-up as needed. A 1 year screening mammogram is recommended. Based on the Tyrer Cuzick model (a risk assessment model) the patient's lifetime risk is 6.4% and her 10 year risk is 6.4%. According to the ACR, ACS, and NCCN guidelines, an annual breast MRI exam along with mammogram is recommended if the patient's lifetime risk is 20% or greater. This exam was interpreted at Station ID: [id number]. NOTE: For mammograms, a report in lay terms will be sent to the patient. Approximately 15% of breast malignancies will not be visualized mammographically. In the management of a palpable breast mass, a negative mammogram must not discourage biopsy of a clinically suspicious lesion. Electronically Signed By: Oliver Sexton M.D. [facility]/:03/07/2022 09:58:26 letter sent: Normal Exam ACR BI-RADS Category 1: Negative [id number]
== END ==
PROVIDERS: PCP Internal Medicine; Referring Provider Internal Medicine; Visit Provider Internal Medicine
DX: N64.4 Mastodynia (principal)
CPT/HCPCS: 77066; G0279

== ENCOUNTER 2022-09-09 12:44 | Emergency (ER) | payer BC, SELFPAY ==
[2022-09-09 12:55] VITALS: BP 141/65; PULSE 87; RESP 16; TEMP 37.1; O2SAT 97; BMI 27.2
--- NOTE | 2022-09-09 13:59 | PC.NURSE ---
Pt reports recent diagnosis of the virus that is going around on Aug 29 and worsening back pain since then. Pt also c/o intermittent, productive clear and brown cough.
--- NOTE | 2022-09-09 14:25 | DI.RAD.S_ITS ---
PROCEDURE: XR CHEST 2V INDICATIONS: left pneumonia? TECHNIQUE: 2 views of the chest were acquired. COMPARISON: [facility], CHEST 2 VIEW, 11/04/2013, 17:11. [facility], , CHEST 2 VIEW, 09/06/2013, 15:41. FINDINGS: Surgical changes and devices: None. Lungs and pleura: Lungs are abnormal, with a mild chronic interstitial prominence. No pleural effusions or pneumothorax. Mediastinum: Mediastinal contours are normal. Heart size is normal. Bones and chest wall: No suspicious bony abnormalities. Soft tissues appear unremarkable. IMPRESSION: No pneumonia found. Mild chronic interstitial prominence again noted. Dictated by: Joce Murray M.D. on 09/09/2022 at 14:56 Approved by: Joce Murray M.D. on 09/09/2022 at 14:57
--- NOTE | 2022-09-09 14:33 | ED_ITS ---
HPI - Back Pain/Injury <Noemí Fontenot, [facility] - Last Filed: 09/09/22 20:21> General Chief Complaint: Back Pain/Injury Stated Complaint: States she has the Flu, Fever, Low back pain Time Seen by Provider: 09/09/22 14:01 History of Present Illness HPI Narrative: This is a 77-year-old female who presents to the emergency department complaining of flu-like symptoms with a productive cough since she had upper respiratory viral infection similar to influenza starting on August 29. Patient has been seen in the walk-in clinic, states that she has a history of pn eumonia, and today presents with worsening low back pain primarily on the left side. She has a history of low back pain but states it is typically intermittent, she had muscle aches and felt poorly last night with chills today. Denies fever, diaphoresis, nausea vomiting. States that she has ongoing productive cough, denies shortness of breath, wheezing, denies recent injury. States that she is been coughing frequently over the last 3 weeks, states that her back pain was so painful this morning she was in tears. She is not anticoagulated, has history of allergy. Related Data Home Medications Medication Instructions Recorded Confirmed [employer] Vitamins 1 packet PO BID 04/03/19 04/03/19 atorvastatin 40 mg tablet 40 mg PO QPM 04/03/19 04/03/19 latanoprost 0.005 % eye drops 1 drp ophthalmic (eye) BEDTIME 04/03/19 04/03/19 metformin 500 mg tablet 500 mg PO BID 04/03/19 04/03/19 Previous Rx's Medication Instructions Recorded amoxicillin 875 mg-potassium 1 tab PO BID 5 days #10 tabs 09/09/22 clavulanate 125 mg tablet benzonatate 200 mg capsule 200 mg PO TID PRN cough #14 caps 09/09/22 doxycycline hyclate 100 mg capsule 100 mg PO BID 5 days #10 caps 09/09/22 hydrocodone 5 mg-acetaminophen 325 1 tab PO TID PRN pain #10 tabs 09/09/22 mg tablet lidocaine 5 % topical patch 1 patch topical DAILY #15 ea 09/09/22 (Lidoderm) methocarbamol 500 mg tablet 500 mg PO TID PRN muscle spasm #14 09/09/22 tabs prednisone 20 mg tablet 20 mg PO DAILY 5 days #5 tabs 09/09/22 Allergies Allergy/AdvReac Type Severity Reaction Status Date / Time Sulfa (Sulfonamide Allergy Mild Verified 04/03/19 12:33 Antibiotics) [SULFA (SULFONAMIDE ANTIBIOTICS)] Review of Systems <CHANDLER Butler - Last Filed: 09/09/22 20:21> Review of Systems ROS Unobtainable: All systems reviewed & are unremarkable except as noted in HPI and below Patient History <CHANDLER Butler - Last Filed: 09/09/22 20:21> Medical History Hyperlipidemia Social History Smoking Status: Never smoker Smoking Status: Never smoker alcohol intake frequency: a few times a week Substance Use Type: does not use Exam <CHANDLER Butler - Last Filed: 09/09/22 20:21> Narrative Exam Narrative: Reviewed vitals signs and nursing notes. General: cooperative, comfortable, appears very uncomfortable, tearful related to her low back pain, over dressed for the temperature, well groomed HEENT: symmetrical facial expressions, dry mucous membranes, without rhinorrhea or sore throat posterior pharynx erythema Cardiovascular: regular rate and rhythm, no peripheral edema, S1-S2 without mur mur or lower extremity edema warm extremities Respiratory: normal effort, able to speak in complete sentences, without wheezing, stridor, no retractions or tachypnea however diminished breath sounds posterior left upper and lower lobes, could be related to shallow breathing. GI: abdomen soft, nontender to palpation, nondistended, without masses, rebound tenderness or exquisite tenderness with exam. MSK: moves all extremities, neurovascularly intact, no weakness, normal tone Skin: brisk capillary refill, without pallor or erythema Neuro: normal speech and cognition, A&O x3, ambulatory, clear speech Psych: mental status is grossly normal, congruent mood, normal affect, pleasant and cooperative Initial Vital Signs Initial Vital Signs: Vital Signs Temperature 98.7 F 09/09/22 12:55 Pulse Rate 87 09/09/22 12:55 Respiratory Rate 16 09/09/22 12:55 Blood Pressure 141/65 H 09/09/22 12:55 Pulse Oximetry 97 09/09/22 12:55 Oxygen Delivery Method 09/09/22 12:55 <Kimberly Barrientos DO - Last Filed: 09/10/22 14:31> Initial Vital Signs Initial Vital Signs: Vital Signs Temperature 98.7 F 09/09/22 12:55 Pulse Rate 87 09/09/22 12:55 Respiratory Rate 16 09/09/22 12:55 Blood Pressure 141/65 H 09/09/22 12:55 Pulse Oximetry 97 09/09/22 12:55 Oxygen Delivery Method 09/09/22 12:55 Scores <CHANDLER Butler - Last Filed: 09/09/22 20:21> CURB-65 Confusion: No BUN >19mg/dL (>7mmol/L): No Respiratory rate greater or equal to 30: No SBP <90mmHg or DBP less or equal to 60mmHg: No Age 65 or Older: Yes CURB-65 Total: 1 Score 0-1 Outpatient care, Score 2 Inpt vs. Obs, Score 3 or over Inpt admit with ICU for score of 4-5 <Kimberly Barrientos DO - Last Filed: 09/10/22 14:31> CURB-65 CURB-65 Total: 1 Course <CHANDLER Butler - Last Filed: 09/09/22 20:21> Orders Ordered: Discontinued Medications Hydrocodone Bitart/Acetaminophen (Hydrocodone/Acet 5/325 Tablet) 1 tab PO NOW ONE Stop: 09/09/22 14:26 Last Admin: 09/09/22 15:00 Dose: 1 tab Documented By: KATYA Amoxicillin/Clavulanate Potassium (Amoxicillin/Clav 875/125 Mg) 1 tab PO NOW ONE Stop: 09/09/22 15:37 Last Admin: 09/09/22 15:55 Dose: 1 tab Documented By: TEDDY Doxycycline Hyclate (Doxycycline Hyclate 100 Mg Tablet) 100 mg PO NOW ONE Stop: 09/09/22 15:37 Last Admin: 09/09/22 15:59 Dose: 100 mg Documented By: TEDDY Ibuprofen (Ibuprofen 400 Mg Tablet) 400 mg PO NOW ONE Stop: 09/09/22 14:26 Last Admin: 09/09/22 15:17 Dose: Not Given Documented By: KATYA Ketorolac Tromethamine (Ketorolac 30 Mg/Ml Vial) 15 mg IM NOW ONE Stop: 09/09/22 14:26 Last Admin: 09/09/22 15:00 Dose: 15 mg Documented By: KATYA Lidocaine (Lidocaine Patch 1 Each Adh..Patch) 1 each TOP NOW ONE Stop: 09/09/22 14:26 Last Admin: 09/09/22 15:01 Dose: 1 each Documented By: KATYA Prednisone (Prednisone 20 Mg Tablet) 40 mg PO NOW ONE Stop: 09/09/22 14:26 Last Admin: 09/09/22 15:01 Dose: 40 mg Documented By: KATYA Vital Signs Vital signs: Vital Signs - 8 hr 09/09/22 12:55 09/09/22 15:18 09/09/22 16:08 Temperature 98.7 F Pulse Rate 87 79 70 Respiratory Rate 16 16 16 Blood Pressure 141/65 H 138/64 110/57 L Pulse Oximetry 97 97 97 Oxygen Delivery Method Room Air Room Air Room Air <Kimberly Barrientos DO - Last Filed: 09/10/22 14:31> Orders Ordered: Discontinued Medications Hydrocodone Bitart/Acetaminophen (Hydrocodone/Acet 5/325 Tablet) 1 tab PO NOW ONE Stop: 09/09/22 14:26 Last Admin: 09/09/22 15:00 Dose: 1 tab Documented By: KATYA Amoxicillin/Clavulanate Potassium (Amoxicillin/Clav 875/125 Mg) 1 tab PO NOW ONE Stop: 09/09/22 15:37 Last Admin: 09/09/22 15:55 Dose: 1 tab Documented By: TEDDY Doxycycline Hyclate (Doxycycline Hyclate 100 Mg Tablet) 100 mg PO NOW ONE Stop: 09/09/22 15:37 Last Admin: 09/09/22 15:59 Dose: 100 mg Documented By: TEDDY Ibuprofen (Ibuprofen 400 Mg Tablet) 400 mg PO NOW ONE Stop: 09/09/22 14:26 Last Admin: 09/09/22 15:17 Dose: Not Given Documented By: KATYA Ketorolac Tromethamine (Ketorolac 30 Mg/Ml Vial) 15 mg IM NOW ONE Stop: 09/09/22 14:26 Last Admin: 09/09/22 15:00 Dose: 15 mg Documented By: KATYA Lidocaine (Lidocaine Patch 1 Each Adh..Patch) 1 each TOP NOW ONE Stop: 09/09/22 14:26 Last Admin: 09/09/22 15:01 Dose: 1 each Documented By: KATYA Prednisone (Prednisone 20 Mg Tablet) 40 mg PO NOW ONE Stop: 09/09/22 14:26 Last Admin: 09/09/22 15:01 Dose: 40 mg Documented By: KATYA Vital Signs Vital signs: Vital Signs - 8 hr 09/09/22 12:55 09/09/22 15:18 09/09/22 16:08 Temperature 98.7 F Pulse Rate 87 79 70 Respiratory Rate 16 16 16 Blood Pressure 141/65 H 138/64 110/57 L Pulse Oximetry 97 97 97 Oxygen Delivery Method Room Air Room Air Room Air MDM - Back Pain/Injury <Noemí Fontenot, [facility] - Last Filed: 09/09/22 20:21> Lab Data Result diagrams: 09/09/22 15:05 09/09/22 15:05 Labs: Lab Results 09/09/22 09/09/22 09/09/22 Range/Units 14:02 15:05 15:05 WBC 12.2 H (4.5-11.0) X10^3/uL RBC 4.40 (4.0-5.2) X10^6/uL Hgb 12.8 (12.0-16.0) g/dL Hct 39.0 (36-46) % MCV 88.6 (80-100) fL MCH 29.1 (26-34) PG MCHC 32.8 (30-36) % RDW 13.1 (11.6-14.8) % Plt Count 384 (150-400) X10^3/uL Neut % (Auto) 82.1 H (50-75) % Lymph % (Auto) 9.2 L (25-40) % Mobile % (Auto) 7.8 (3-14) % Eos % (Auto) 0.1 L (2-4) % Baso % (Auto) 0.8 (0-2) % Neut # (Auto) 00221 H (5035-8253) /uL Lymph # (Auto) 1100 (5317-2778) /uL Mobile # (Auto) 1000 H (0-900) /uL Eos # (Auto) 0 (0-450) /uL Baso # (Auto) 100 (0-100) /uL Sodium 136 L (137-145) mmol/L Potassium 4.2 (3.4-5.1) mmol/L Chloride 99 (98-107) mmol/L Carbon Dioxide 24 (22-32) mmol/L BUN 12 (7-17) mg/dL Creatinine 0.76 (0.52-1.04) mg/dL Estimated GFR > 60 (>60) mL/min BUN/Creatinine Ratio 15.8 (6-22) Glucose 227 H (80-110) mg/dL Calcium 8.8 (8.4-10.2) mg/dL Total Bilirubin 0.5 (0.2-1.3) mg/dL AST 24 (14-36) IU/L ALT 25 (<35) IU/L Alkaline Phosphatase 115 (38-126) U/L C-Reactive Protein 4.7 H (<1.0) mg/dL Total Protein 8.7 H (6.3-8.2) g/dL Albumin 4.0 (3.5-5.0) g/dL Globulin 4.7 H (1.7-4.1) g/dL Albumin/Globulin Ratio 0.9 L (1.0-2.8) Lipase 173 (23-300) U/L Procalcitonin 0.05 (<0.5) ng/mL SARS-CoV-2 (PCR) Negative (Negative) Influenza A (RT-PCR) Flu a negative (NEGATIVE) Influenza B (RT-PCR) Flu b negative (NEGATIVE) RSV (PCR) Negative (Negative) Imaging Data Chest x-ray: Radiologist's Impression: PROCEDURE:? XR CHEST 2V ? INDICATIONS:? left pneumonia? ? TECHNIQUE:? 2 views of the chest were acquired.? ? COMPARISON:? [facility], CHEST 2 VIEW, 11/04/2013, 17:11.? [facility], CHEST 2 VIEW, 09/06/2013, 15:41. ? FINDINGS:? ? Surgical changes and devices:? None.? ? Lungs and pleura:? Lungs are abnormal, with a mild chronic interstitial prominence.? No pleural effusions or pneumothorax.? ? Mediastinum:? Mediastinal contours are normal.? Heart size is normal.? ? Bones and chest wall:? No suspicious bony abnormalities.? Soft tissues appear unremarkable.? ? IMPRESSION:? No pneumonia found.? Mild chronic interstitial prominence again noted. ? ? Dictated by: Joce Murray M.D. on 09/09/2022 at 14:56 ? ? Approved by: Joce Murray M.D. on 09/09/2022 at 14:57 ? Lumbar XR: Radiologist's Impression: PROCEDURE:? XR LUMBAR SPINE 2-3V ? INDICATIONS:? Worsening low back pain with left-sided sciatica to lateral ? TECHNIQUE:? 3 views of the lumbar spine were acquired.? ? COMPARISON:? [facility], CR, XR LUMBAR SPINE 2-3V, 04/03/2019, 11:27. ? FINDINGS:? ? Bones:? 5 [id number] vertebrae are present.? There is normal bony alignment.? No vertebral body compression fractures.? No suspicious bony lesions.? Lower lumbar facet arthropathy.? Multilevel degenerative disc space loss. ? Soft tissues:? Overlying bowel gas pattern is normal.? No suspicious soft tissue calcifications.? ? ? IMPRESSION:? Degenerative change.? No evidence acute bony abnormality of the lumbar spine. ? Comment:? Lumbar spine MRI may be helpful.? ? ? Dictated by: Wyatt Portillo M.D. on 09/09/2022 at 15:05 ? ? Approved by: Wyatt Portillo M.D. on 09/09/2022 at 15:06 ? MDM Narrative Medical decision making narrative: Medical decision making narrative: This is a 77-year-old female who presents to the emergency department complaining of flu-like symptoms with a productive cough since she had upper respiratory viral infection similar to influenza starting on August 29. Patient has been seen in the walk-in clinic, states that she has a history of pneumonia, and today presents with worsening low back pain primarily on the left side. Differential diagnoses include, but are not limited to: Pneumonia, pneumothorax, acute upper respiratory viral illness, viral pneumonia, pleural effusion, bronchitis, sinusitis, I have reviewed the patient's vital signs and nursing notes as well as prior records if available And patient has not been here for similar complaints in the past Lab test results independently reviewed, pertinent findings: Respiratory panel came back negative for all tested viruses, mild leukocytosis 12.2, left shift, no electrolyte abnormalities, procalcitonin 0.05 My imaging interpretation: Chest x-ray two views without focal opacity or lobar pneumonia Clinical Decision Rules/Scores evaluated: Curb 65=1 Course of care/re-evaluations: Chest x-ray is negative for focal opacity or lobar pneumonia, shows mild chronic interstitial prominence similar to prior, lumbar x-ray without any acute abnormalities including fracture, degenerative disc disease Patient has history of pneumonia, has had a cough for the last 3 weeks, has a leukocytosis with a left shift, diminished breath sounds on the left. She appears ill but is not toxic appearing, afebrile without tachypnea. Will treat for pneumonia, Augmentin and doxycycline for patient's comorbidities. Prescribed Tessalon Perles for her cough, prednisone 20 mg daily x5 days for her low back pain exacerbation as well as her pneumonia, also prescribed lidocaine patches, muscle relaxers, ibuprofen and hydrocodone pills as needed for breakthrough low back pain. Patient's symptoms improved over duration of stay with above-stated therapies. Social considerations that may affect disposition: None Shared decision making: With patient, she understands to follow up with her primary care provider for referral to physical therapy for her back pain, lumbar x-rays negative for acute fracture or new changes, shows degenerative disc disease, chest x-ray without focal opacity however patient has diminished breath sounds on the left, has had a productive cough for 3 weeks, has a leukocytosis with a left shift and negative respiratory panel. She understands to follow up with her primary care provider, take deep breaths, clear her secretions and stay hydrated. Questions are addressed and there is agreement with the plan and for follow-up. Patient is appropriate for outpatient management. MIPS: This encounter doesn't have any diagnosis associated with MIPS criteria. I collaborated with the ED attending physician for SNOW level 2, 3, and some level 4s as appropriate. <Kimberly Barrientos, DO - Last Filed: 09/10/22 14:31> Lab Data Labs: Lab Results 09/09/22 09/09/22 09/09/22 Range/Units 14:02 15:05 15:05 WBC 12.2 H (4.5-11.0) X10^3/uL RBC 4.40 (4.0-5.2) X10^6/uL Hgb 12.8 (12.0-16.0) g/dL Hct 39.0 (36-46) % MCV 88.6 (80-100) fL MCH 29.1 (26-34) PG MCHC 32.8 (30-36) % RDW 13.1 (11.6-14.8) % Plt Count 384 (150-400) X10^3/uL Neut % (Auto) 82.1 H (50-75) % Lymph % (Auto) 9.2 L (25-40) % Mobile % (Auto) 7.8 (3-14) % Eos % (Auto) 0.1 L (2-4) % Baso % (Auto) 0.8 (0-2) % Neut # (Auto) 08358 H (3394-4392) /uL Lymph # (Auto) 1100 (5606-2458) /uL Mobile # (Auto) 1000 H (0-900) /uL Eos # (Auto) 0 (0-450) /uL Baso # (Auto) 100 (0-100) /uL Sodium 136 L (137-145) mmol/L Potassium 4.2 (3.4-5.1) mmol/L Chloride 99 (98-107) mmol/L Carbon Dioxide 24 (22-32) mmol/L BUN 12 (7-17) mg/dL Creatinine 0.76 (0.52-1.04) mg/dL Estimated GFR > 60 (>60) mL/min BUN/Creatinine Ratio 15.8 (6-22) Glucose 227 H (80-110) mg/dL Calcium 8.8 (8.4-10.2) mg/dL Total Bilirubin 0.5 (0.2-1.3) mg/dL AST 24 (14-36) IU/L ALT 25 (<35) IU/L Alkaline Phosphatase 115 (38-126) U/L C-Reactive Protein 4.7 H (<1.0) mg/dL Total Protein 8.7 H (6.3-8.2) g/dL Albumin 4.0 (3.5-5.0) g/dL Globulin 4.7 H (1.7-4.1) g/dL Albumin/Globulin Ratio 0.9 L (1.0-2.8) Lipase 173 (23-300) U/L Procalcitonin 0.05 (<0.5) ng/mL SARS-CoV-2 (PCR) Negative (Negative) Influenza A (RT-PCR) Flu a negative (NEGATIVE) Influenza B (RT-PCR) Flu b negative (NEGATIVE) RSV (PCR) Negative (Negative) Discharge Plan Departure Patient Disposition: Home Clinical Impression: Acute left lumbar radiculopathy Pneumonia Qualifiers: Pneumonia type: due to unspecified organism Laterality: unspecified laterality Lung location: unspecified part of lung Qualified Code(s): J18.9 - Pneumonia, unspecified organism Instructions: Pneumonia-Adult, Lumbar Radiculopathy Activity Restrictions/Additional Instructions: *You have been diagnosed with slight increased to your white blood cells on your lab work, elevation of CRP which reflects inflammation, your COVID, influenza and RSV test was negative however you had productive cough for 3 weeks and now are having symptoms of pneumonia. Will treat you with 2 antibiotics, a steroid, and give you some pain medication for your back. Please use muscle relaxers every 8 hours as needed, they will make you sleepy, please do not drive with them. Use lidocaine patches, Tessalon Perles for your cough, stay hydrated and make sure that you are voiding a few times a day. Please come back if you have any worsening of your symptoms. I hope you feel better soon, schedule follow-up with your primary when you are well *What to do: *Please continue to take your regular medications as directed. [x ] New medication prescriptions sent to your pharmacy: [ ] [ ] New medication written as a paper prescription [ ] No new medications given *Please follow up with your primary care provider in 2-3 days, call for an appointment. Let them know you were seen in the Emergency Department and that we asked that you be seen for follow-up. We will electronically transmit a record of today's note if your PCP is in our system *If you do not have a primary care provider please contact [phone] to establish care with one of the [facility] primary care providers. *Return to Emergency Department if you should have any new, worsening, or concerning symptoms, such as [fever greater than 101F, chills, worsening pain, persistent vomiting or other bothersome symptoms]. Prescriptions: New amoxicillin-pot clavulanate 875-125 mg tablet 1 tab PO BID 5 Days Qty: 10 0RF doxycycline hyclate 100 mg capsule 100 mg PO BID 5 Days Qty: 10 0RF prednisone 20 mg tablet 20 mg PO DAILY 5 Days Qty: 5 0RF lidocaine [Lidoderm] 5 % adhesive patch,medicated 1 patch topical DAILY Qty: 15 0RF Rx Instructions: leave on most painful area for up to 12 hrs methocarbamol 500 mg tablet 500 mg PO TID PRN (Reason: muscle spasm) Qty: 14 0RF benzonatate 200 mg capsule 200 mg PO TID PRN (Reason: cough) Qty: 14 0RF hydrocodone-acetaminophen 5-325 mg tablet 1 tab PO TID PRN (Reason: pain) Qty: 10 0RF No Action latanoprost 0.005 % drops 1 drp ophthalmic (eye) BEDTIME atorvastatin 40 mg tablet 40 mg PO QPM metformin 500 mg tablet 500 mg PO BID Label Comments: take 1 tablet by mouth twice a day with meals [employer] Vit[employer] 1 packet PO BID Label Comments: patient takes AM and PM packets...does not like taking PM pack due to bloating feeling. states gets from daughter. Referrals: Ashley Munoz MD [Primary Care Provider] - Stand Alone Forms: Patient Portal/API <Kimberly Barrientos DO - Last Filed: 09/10/22 14:31> Cosign ED Attending Coscordellature Attestation: I was immediately available in the department for consultation. Documentation has been reviewed.
--- NOTE | 2022-09-09 14:41 | DI.RAD.S_ITS ---
PROCEDURE: XR LUMBAR SPINE 2-3V INDICATIONS: Worsening low back pain with left-sided sciatica to lateral TECHNIQUE: 3 views of the lumbar spine were acquired. COMPARISON: [facility], , XR LUMBAR SPINE 2-3V, 04/03/2019, 11:27. FINDINGS: Bones: 5 lqv-chm-uvcomea vertebrae are present. There is normal bony alignment. No vertebral body compression fractures. No suspicious bony lesions. Lower lumbar facet arthropathy. Multilevel degenerative disc space loss. Soft tissues: Overlying bowel gas pattern is normal. No suspicious soft tissue calcifications. IMPRESSION: Degenerative change. No evidence acute bony abnormality of the lumbar spine. Comment: Lumbar spine MRI may be helpful. Dictated by: Wyatt Portillo M.D. on 09/09/2022 at 15:05 Approved by: Wyatt Portillo M.D. on 09/09/2022 at 15:06
[2022-09-09] MEDS: HYDROCODONE/ACET 5/325 TABLET 1 TAB PO (15:00)
[2022-09-09] MEDS: KETOROLAC 30 MG/ML VIAL 15 MG IM (15:00)
[2022-09-09 15:01] LABS: Influenza A - CEPHEID Flu A NEGATIVE (NEGATIVE); Influenza B - CEPHEID Flu B NEGATIVE (NEGATIVE); Respiratory Syncytial Virus Negative (Negative)
[2022-09-09] MEDS: predniSONE 20 MG TABLET 40 MG PO (15:01)
[2022-09-09] MEDS: LIDOCAINE PATCH 1 EACH ADH..PATCH TOP (15:01)
[2022-09-09 15:02] LABS: COVID-19 CEPHEID 4-PLEX PCR Negative (Negative)
[2022-09-09 15:18] VITALS: BP 138/64; PULSE 79; RESP 16; O2SAT 97
[2022-09-09 15:19] LABS: Add Manual Diff / Slide Review NO; Basophils Absolute Auto 100 /uL (0-100); Basophils Percent Auto 0.8 % (0-2); Eosinophils Absolute Auto 0 /uL (0-450); Eosinophils Percent Auto 0.1 % (2-4); Hemoglobin 12.8 g/dL (12.0-16.0); Lymphocytes Absolute Auto 1100 /uL (1100-4500); Lymphocytes Percent Auto 9.2 % (25-40); Mean Corpuscular HGB Conc 32.8 % (30-36); Mean Corpuscular Hemoglobin 29.1 PG (26-34); Mean Corpuscular Volume 88.6 fL (80-100); Monocytes Absolute Auto 1000 /uL (0-900); Monocytes Percent Auto 7.8 % (3-14); Neutrophils Absolute Auto 10000 /uL (1500-7000); Neutrophils Percent Auto 82.1 % (50-75); Platelet Count 384 X10^3/uL (150-400); Red Cell Distribution Width 13.1 % (11.6-14.8); White Blood Cell Count 12.2 X10^3/uL (4.5-11.0)
[2022-09-09 15:41] LABS: Alanine Aminotransferase 25 IU/L (<35); Albumin Globulin Ratio 0.9 (1.0-2.8); Alkaline Phosphatase 115 U/L (38-126); Aspartate Aminotransferase 24 IU/L (14-36); BUN Creatinine Ratio 15.8 (6-22); Bilirubin Total 0.5 mg/dL (0.2-1.3); Blood Urea Nitrogen 12 mg/dL (7-17); C-Reactive Protein Quant 4.7 mg/dL (<1.0); Calcium 8.8 mg/dL (8.4-10.2); Carbon Dioxide 24 mmol/L (22-32); Chloride 99 mmol/L (98-107); Estimated Glomerular Filt Rate > 60 mL/min (>60); Globulin 4.7 g/dL (1.7-4.1); Glucose 227 mg/dL (80-110); Lipase 173 U/L (23-300); Potassium 4.2 mmol/L (3.4-5.1); Sodium 136 mmol/L (137-145); Total Protein 8.7 g/dL (6.3-8.2)
[2022-09-09] MEDS: AMOXICILLIN/CLAV 875/125 MG 1 TAB PO (15:55)
[2022-09-09 15:57] LABS: HEMOLYSIS < 15 (0-50); Procalcitonin 0.05 ng/mL (<0.5)
[2022-09-09] MEDS: DOXYCYCLINE HYCLATE 100 MG TABLET PO (15:59)
[2022-09-09 16:08] VITALS: BP 110/57; PULSE 70; RESP 16; O2SAT 97
== END 2022-09-09 16:12 | disposition home or self-care (01) ==
PROVIDERS: Emergency Provider Nurse Practitioner Critical Care Medicine; PCP Internal Medicine
DX: M54.16 Radiculopathy, lumbar region (principal); J18.9 Pneumonia, unspecified organism; Z20.822 Contact with and (suspected) exposure to COVID-19
CPT/HCPCS: 0241U; 36415; 71046; 72100; 80053; 83690; 84145; 85025; 86140; 96372; 99284; J1885

== ENCOUNTER → 2023-06-28 18:28 | Outpatient (CLI) | payer BC, SELFPAY ==
--- NOTE | 2023-06-28 18:31 | DI.RAD.S_ITS ---
PROCEDURE: XR FINGER LT MIN 2V INDICATIONS: Thumb injury TECHNIQUE: AP hand, 2 views of the 1st finger(s) acquired. COMPARISON: None. FINDINGS: Bones: No fractures or dislocations. No suspicious bony lesions. Moderate osteoarthritic changes at the 1st carpometacarpal joint, and mild osteoarthritic changes at the 1st metacarpophalangeal joint and multiple interphalangeal joints. There is bony erosion involving the 1st metacarpal head and the base of the 1st proximal phalanx. Generalized osteopenia. Soft tissues: No suspicious soft tissue calcifications. IMPRESSION: 1. No acute osseous abnormalities. 2. Moderate osteoarthritis. Bony erosion is present, suggesting inflammatory arthritis such as erosive OA. 3. Osteopenia. Dictated by: Bakari Robledo M.D. on 06/29/2023 at 12:12 Approved by: Bakari Robledo M.D. on 06/29/2023 at 12:18
== END ==
PROVIDERS: PCP Internal Medicine; Referring Provider Nurse Practitioner Family; Visit Provider Nurse Practitioner Family
DX: S60.012A Contusion of left thumb without damage to nail, initial encounter (principal); M19.042 Primary osteoarthritis, left hand; M85.842 Other specified disorders of bone density and structure, left hand; X58.XXXA Exposure to other specified factors, initial encounter
CPT/HCPCS: 73140

== ENCOUNTER → 2023-08-01 12:35 | Outpatient (CLI) | payer BC, SELFPAY ==
--- NOTE | 2023-08-01 12:55 | DI.RAD.S_ITS ---
PROCEDURE: XR LUMBAR SPINE 2-3V INDICATIONS: LOW BACK PAIN TECHNIQUE: 3 views of the lumbar spine were acquired. COMPARISON: [facility], , XR LUMBAR SPINE 2-3V, 09/09/2022, 14:42. FINDINGS: Bones: 5 rfq-zal-[id number] vertebrae are present. There is trace anterolisthesis of L4 on L5. No vertebral body compression fractures. No suspicious bony lesions. There is degenerative disc disease, moderate at L5-S1, and mild at other levels. Moderate facet arthropathy at L2-L3, L3-L4, L4-L5 and L5-S1. Soft tissues: Overlying bowel gas pattern is normal. No suspicious soft tissue calcifications. IMPRESSION: 1. Moderate degenerative disc and facet disease in lumbar spine. Dictated by: Bakari Robledo M.D. on 08/01/2023 at 16:16 Approved by: Bakari Robledo M.D. on 08/02/2023 at 8:14
== END ==
PROVIDERS: PCP Internal Medicine; Referring Provider Internal Medicine; Visit Provider Internal Medicine
DX: M51.36 Other intervertebral disc degeneration, lumbar region (principal); M51.37 Other intervertebral disc degeneration, lumbosacral region; M47.816 Spondylosis without myelopathy or radiculopathy, lumbar region; M47.817 Spondylosis without myelopathy or radiculopathy, lumbosacral region; M54.50 Low back pain, unspecified
CPT/HCPCS: 72100

== ENCOUNTER → 2023-09-28 13:59 | Outpatient (CLI) | payer BC, SELFPAY ==
--- NOTE | 2023-09-28 | DI.MG.S_ITS ---
BILATERAL DIGITAL SCREENING MAMMOGRAM 3D/2D WITH CAD: 09/28/2023 CLINICAL: Routine screening. Comparison is made to exams dated: 03/07/2022 mammogram, 12/24/2020 mammogram, and 10/23/2019 mammogram - [facility]. Both breasts are heterogeneously dense, which may obscure small masses (category c / 51-75% glandular tissue). Current study was also evaluated with a Computer Aided Detection (CAD) system. No significant masses, calcifications, or other findings are seen in either breast. There has been no significant interval change. IMPRESSION: NEGATIVE There is no mammographic evidence of malignancy. A 1 year screening mammogram is recommended. Based on the Tyrer Cuzick model (a risk assessment model) the patient's lifetime risk is 5.3% and her 10 year risk is 0.0%. According to the ACR, ACS, and NCCN guidelines, an annual breast MRI exam along with mammogram is recommended if the patient's lifetime risk is 20% or greater. This exam was interpreted at Station ID: [id number]. NOTE: For mammograms, a report in lay terms will be sent to the patient. Approximately 15% of breast malignancies will not be visualized mammographically. In the management of a palpable breast mass, a negative mammogram must not discourage biopsy of a clinically suspicious lesion. Electronically Signed By: Geronimo martin/pillo:09/28/2023 15:18:40 letter sent: Normal Exam ACR BI-RADS Category 1: Negative [id number]
--- NOTE | 2023-09-28 14:00 | DI.RAD.S_ITS ---
Bone Density Report Name: PINKY BERNAL Age: 78 Sex: Female Ethnicity: Date of : 1945 Indication: osteopenia; Referring Provider: KADIE CARRASQUILLO Study: Bone densitometry was performed. Exam Date: September 28, 2023 Accession number: [id number] Bone Density: Region BMD T-score Z-score Classification AP Spine(L1-L4) 0.847 -1.8 0.7 Osteopenia Femoral Neck (Left) 0.597 -2.3 -0.1 Osteopenia Total Hip (Left) 0.706 -1.9 0.0 Osteopenia Femoral Neck (Right) 0.575 -2.5 -0.3 Osteoporosis Total Hip (Right) 0.687 -2.1 -0.2 Osteopenia Total Hip Mean 0.696 -2.0 -0.1 Osteopenia World Health Organization criteria for BMD impression classify patients as: Normal (T-score at or above -1.0), Osteopenia (T-score between -1.0 and -2.5), or Osteoporosis (T-score at or below -2.5). 10-year Fracture Risk: FRAX not reported because: Some T-score for Spine Total or Hip Total or Femoral Neck at or below -2.5 Previous Exams: -- Region Exam Age BMD T-score BMD Change BMD Change Date g/cm2 vs Baseline vs Previous -- AP Spine (L1-L4) 09/28/2023 78 0.847 -1.8 -0.053 (-5.9%)# 0.020 (2.4%)# 06/18/2020 75 0.828 -2.0 -0.072 (-8.0%)* 0.004 (0.5%) 05/17/2018 73 0.824 -2.0 -0.077 (-8.5%)* 0.005 (0.6%) 09/30/2013 68 0.819 -2.1 -0.081 (-9.0%)* -0.067 (-7.6%)* 06/10/2011 66 0.886 -1.5 -0.014 (-1.6%) -0.014 (-1.6%) 08/10/2009 64 0.900 -1.3 Total Hip(Left) 09/28/2023 78 0.706 -1.9 -0.127 (-15.3%)# 0.009 (1.3%)# 06/18/2020 75 0.697 -2.0 -0.136 (-16.3%)* -0.059 (-7.8%)* 05/17/2018 73 0.756 -1.5 -0.077 (-9.2%)* -0.043 (-5.3%)* 09/30/2013 68 0.799 -1.2 -0.034 (-4.1%)* 0.003 (0.3%) 06/10/2011 66 0.796 -1.2 -0.037 (-4.4%)* -0.037 (-4.4%)* 08/10/2009 64 0.833 -0.9 Total Hip(Right) 09/28/2023 78 0.687 -2.1 -0.160 (-18.9%)# -0.041 (-5.7%)# 06/18/2020 75 0.729 -1.7 -0.119 (-14.1%)* -0.012 (-1.6%) 05/17/2018 73 0.741 -1.6 -0.107 (-12.6%)* -0.010 (-1.3%) 09/30/2013 68 0.751 -1.6 -0.097 (-11.4%)* -0.069 (-8.4%)* 06/10/2011 66 0.820 -1.0 -0.028 (-3.3%)* -0.028 (-3.3%)* 08/10/2009 64 0.848 -0.8 -- *Denotes significance at 95% confidence level, LSC for AP Spine = 0.022 g/cm2, LSC for Total Hip = 0.027 g/cm2 # Denotes dissimilar scan types or analysis methods Impression: The patient has osteoporosis, based on the Right Femoral Neck T-score. No significant bone loss was observed. Discussion: INCREASED RISK OF FRACTURE. BONE DENSITY IS UNDESIRABLY LOW AT ONE OR MORE SKELETAL SITES, CONSISTENT WITH POSTMENOPAUSAL OSTEOPOROSIS. This patient's lowest T-score meets the World Health Organization's (WHO) criteria for osteoporosis at one or more sites (T-score -2.5 or below). In untreated patients, the risk of osteoporotic fracture increases approximately two-fold for each 1.0 SD decrease in T-score. Low bone density is not the only risk factor for fracture; also consider factors such as patient's age, frailty or poor health, risk of falling, risk of injury, previous osteoporotic fracture, family history of osteoporosis, cigarette smoking, low body weight, etc. Not everyone with low bone mineral density has osteoporosis; osteomalacia and other metabolic bone disorders should also be considered. Patients who have osteoporosis should be evaluated for specific diseases and conditions (secondary causes) that may cause or contribute to bone loss. The [place] [employer]ocr[employer] (AACE) and National Osteoporosis Foundation (NOF) recommend pharmacologic intervention for all postmenopausal women whose T-score is in this range. The patient should follow a healthful lifestyle (good nutrition with adequate calcium and vitamin D, and appropriate weight-bearing exercise). Follow-Up: Consider a repeat BMD and Vertebral Fracture Assessment (VFA) exam in 2 years or sooner if medically necessary, to reassess this patient's status. Reported by: LIGIA DOSS M.D. on 09/28/2023 2:33:00 PM.
== END ==
PROVIDERS: PCP Internal Medicine; Referring Provider Internal Medicine; Visit Provider Internal Medicine
DX: Z12.31 Encounter for screening mammogram for malignant neoplasm of breast (principal); M81.0 Age-related osteoporosis without current pathological fracture; R92.333 Mammographic heterogeneous density, bilateral breasts
CPT/HCPCS: 77063; 77067; 77080

== ENCOUNTER → 2023-10-11 08:34 | Outpatient (CLI) | payer BC, SELFPAY ==
--- NOTE | 2023-10-11 22:31 | DI.NM.S_ITS ---
DATE OF SERVICE: 10/11/2023 PROCEDURE: Exercise treadmill stress and rest myocardial perfusion imaging study with gating to assess ejection fraction and regional wall motion. ORDERING PROVIDER: Dr. Ashley Munoz. INDICATIONS: The patient is a 78-year-old female with atypical chest discomfort. EXERCISE TREADMILL TESTING: The patient was able to exercise for a total of 7 minutes and 46 seconds on a standard Delfino protocol suggesting excellent exercise capacity with an LUI of -36%, achieving 10.1 METS. She had a normal hemodynamic response to exercise, achieving a maximum heart rate of 130 BPM (91% of her predicted maximum). She had no chest discomfort but had significant dyspnea. Her resting ECG was normal and there were no significant ST-segment shifts or arrhythmias with stress with the exception of rare isolated PVCs. At 6 minutes and 45 seconds of exercise at a heart rate of 122 BPM, 24.0 millicuries of technetium-99m Myoview was injected and she was imaged 15 minutes later using a gated SPECT acquisition protocol. Earlier in the day while at rest, she had been injected with 11.2 millicuries of technetium-99m Myoview and was imaged 15 minutes later, again using a gated SPECT acquisition protocol. FINDINGS: 1. Raw data. There is fairly good myocardial tracer uptake with mild breast shadows noted that traversed the anterior wall. The lung/heart ratio is normal at 0.31 with a normal TID ratio of 1.04. The right ventricle appears mildly enlarged with slightly increased tracer uptake, which can be a sign of a right ventricular overload condition but clinical correlation is needed. 2. Quantitated gated SPECT: Post-stress ejection fraction is estimated at 92%, likely an overestimate because of relatively small left ventricular volumes. Resting ejection fraction is estimated at 90%, also likely an overestimate. There are no focal wall motion abnormalities and resting end-diastolic volume is normal at 59 mL. 3. Myocardial perfusion imaging: Post-stress supine images show a fairly normal myocardial perfusion pattern with a mild defect in the distal anterior septum in a pattern consistent with breast attenuation artifact, supported by its complete resolution on the prone images, revealing a normal perfusion pattern. The resting images show an identical perfusion pattern to that of the post-stress supine images. IMPRESSION: 1. Normal myocardial perfusion study for ischemia. 2. Mild fixed distal anterior defect that resolves on prone imaging, consistent with breast attenuation artifact. There is no compelling evidence for any myocardial ischemia or previous myocardial infarction. 3. High normal left ventricular systolic function with relatively small left ventricular volumes. The right ventricle appears mildly enlarged with slightly increased tracer uptake, which can be a sign of a right ventricular overload condition but clinical correlation is needed. 4. Excellent exercise capacity without angina or ECG evidence of ischemia. She had rare isolated PVCs. 5. Compared to her previous myocardial perfusion study of November 28, 2017, an identical perfusion pattern was seen with a fixed defect that nearly resolved on the prone images. Previous ejection fraction was 86% without focal abnormality and again with relatively small left ventricular volumes. There has been no significant change since the previous exam. Collette Mcqueen - FATEMEH/gayla/KELVIN doc#: [id number]/job#: [id number] dd: 10/11/2023 16:23:00 dt: 10/11/2023 22:15:00 DICTATING MD/COPIES TO: Nishant Wilkerson MD; Ashley Munoz M.D. COPIES MNE: CELESTE;
== END ==
LOC: NUCM 08:35
PROVIDERS: PCP Internal Medicine; Referring Provider Internal Medicine; Visit Provider Internal Medicine
DX: R07.89 Other chest pain (principal)
CPT/HCPCS: 78452; 93017; A9502

== ENCOUNTER 2023-10-24 13:36 | Emergency (ER) | payer BC, SELFPAY ==
[2023-10-24 14:04] VITALS: BP 147/69; PULSE 60; RESP 18; TEMP 36.9; O2SAT 100; BMI 23.0
== END 2023-10-24 18:37 | disposition left against medical advice (07) ==
PROVIDERS: Emergency Provider Emergency Medicine; PCP Internal Medicine
CPT/HCPCS: 99281

== ENCOUNTER 2025-04-29 19:22 | Emergency (ER) | payer BC, MEDICARE, SELFPAY ==
[2025-04-29 19:28] VITALS: BP 133/63; PULSE 78; RESP 18; TEMP 37.1; O2SAT 97; BMI 22.6
[2025-04-29 21:52] LABS: Add Manual Diff / Slide Review NO; Hematocrit 41.0 % (36-46); Hemoglobin 13.5 g/dL (12.0-16.0); Lymphocytes Absolute Auto 2200 /uL (1100-4500); Mean Corpuscular HGB Conc 33.0 % (30-36); Mean Corpuscular Hemoglobin 29.5 PG (26-34); Mean Corpuscular Volume 89.3 fL (80-100); Platelet Count 250 X10^3/uL (150-400)
[2025-04-29 22:02] LABS: Alanine Aminotransferase 26 IU/L (<35); Albumin 4.2 g/dL (3.5-5.0); Albumin Globulin Ratio 1.2 (1.0-2.8); Alkaline Phosphatase 84 U/L (38-126); Blood Urea Nitrogen 21 mg/dL (7-17); Calcium 9.0 mg/dL (8.4-10.2); Carbon Dioxide 26 mmol/L (22-32); Chloride 104 mmol/L (98-107); Estimated Glomerular Filt Rate > 60 mL/min (>60); Globulin 3.6 g/dL (1.7-4.1); Glucose 144 mg/dL (70-99); HEMOLYSIS < 15 (0-50); Magnesium 2.1 mg/dL (1.6-2.3); Potassium 4.7 mmol/L (3.4-5.1); Sodium 136 mmol/L (137-145); Total Protein 7.8 g/dL (6.3-8.2)
[2025-04-29 22:26] VITALS: BP 180/86; PULSE 74; O2SAT 99
[2025-04-29 22:30] VITALS: BP 169/76; PULSE 77; O2SAT 99
[2025-04-29 23:00] VITALS: BP 148/68; PULSE 71; O2SAT 98
[2025-04-29 23:30] VITALS: BP 150/71; PULSE 64; O2SAT 97
[2025-04-30] VITALS: BP 128/65; PULSE 62; O2SAT 96
--- NOTE | 2025-04-30 00:14 | ED.EXTPRO ---
HPI - Extremity Problem General Chief complaint: Extremity Problem,Nontraumatic Stated complaint: CRAMPS IN BOTH LEGS Time Seen by Provider: 04/29/25 20:10 Source: patient Mode of arrival: Family Vehicle History of Present Illness HPI Narrative: 80-year-old female complains of bilateral intermittent calf/leg cramping, no swelling or pain, concern for possible eczema, has been scratching at her right medial ankle area, small abrasion at that site. No fevers or chills. No streaking or redness up the legs. No history of blood clots to legs or lungs. No chest pain or shortness of breath symptoms. No history of restless leg syndrome. Related Data Home Medications ?Medication ?Instructions ?Recorded ?Confirmed No Known Home Medications 11/10/23 11/10/23 Allergies Allergy/AdvReac Type Severity Reaction Status Date / Time Sulfa (Sulfonamide Allergy Mild Verified 04/29/25 19:34 Antibiotics) (SULFA (SULFONAMIDE ANTIBIOTICS)) Patient History Medical History Hyperlipidemia alcohol intake frequency: holidays/special occasions only Exam Narrative Exam Narrative: GENERAL: Well-developed patient, in mild distress. HEAD: Atraumatic. Normocephalic. EYES: Pupils equal round and reactive. Extraocular motions intact. No scleral icterus. No injection or drainage. ENT: Nose without bleeding, purulent drainage. Throat without erythema, tonsillar hypertrophy or exudate. Airway patent. NECK: Trachea midline. Non tender CARDIOVASCULAR: Regular rate and rhythm without murmurs, gallops, or rubs. RESPIRATORY: Clear to auscultation. Breath sounds equal bilaterally. No wheezes, rales, or rhonchi. GASTROINTESTINAL: Abdomen soft, non-tender, nondistended. EXTREMITIES: No edema joint tenderness or gross deformities. Small abrasion cephalad to medial left joint line, small 1.5 cm, without obvious infection. No calf pain swelling or tenderness. No redness or streaking. Symmetrically appearing calves. No foot ankle toe or toenail lesions. Good DP pulses, toes well perfused, warm foot bilateral. BACK: Nontender without deformity or crepitance. No flank tenderness. NEURO: AOx3. Motor functions grossly nonfocal. SKIN: No rash or erythema of visible areas Initial Vital Signs Initial Vital Signs: Vital Signs Temperature 98.7 F 04/29/25 19:28 Pulse Rate 78 04/29/25 19:28 Respiratory Rate 18 04/29/25 19:28 Blood Pressure 133/63 04/29/25 19:28 Pulse Oximetry 97 04/29/25 19:28 Oxygen Delivery Method Room Air 04/29/25 19:28 Course Orders Ordered: ED Orders 04/29/25 21:40 Complete Blood Count AUTO DIFF Stat Comprehensive Metabolic Panel Stat Magnesium Stat Vital Signs Vital signs: Vital Signs - 8 hr 04/29/25 22:26 04/29/25 22:26 04/29/25 22:30 Pulse Rate 74 77 Blood Pressure 180/86 H Pulse Oximetry 99 99 04/29/25 22:30 04/29/25 23:00 04/29/25 23:00 Pulse Rate 71 Blood Pressure 169/76 H 148/68 H Pulse Oximetry 98 04/29/25 23:30 04/29/25 23:30 04/30/25 00:00 Pulse Rate 64 62 Blood Pressure 150/71 H Pulse Oximetry 97 96 04/30/25 00:00 04/30/25 00:30 04/30/25 00:31 Pulse Rate 61 61 Blood Pressure 128/65 Pulse Oximetry 96 95 04/30/25 00:31 04/30/25 00:57 04/30/25 00:57 Pulse Rate 70 Blood Pressure 136/67 144/63 H Pulse Oximetry 98 MDM - Extremity (Nontraumatic) Lab Data Attestation: I reviewed the patient's lab results. Lab results narrative: White blood cell count 7200, hemoglobin 13.5, platelets adequate. Glucose 144. Normal renal function. Serum CO2 26. Sodium 136, potassium 4.7. Calcium and magnesium levels normal as well. Liver functions unremarkable. 04/29/25 21:40 04/29/25 21:40 Labs: Lab Results 04/29/25 Range/Units 21:40 WBC 7.2 (4.5-11.0) X10^3/uL RBC 4.59 (4.0-5.2) X10^6/uL Hgb 13.5 (12.0-16.0) g/dL Hct 41.0 (36-46) % MCV 89.3 (80-100) fL MCH 29.5 (26-34) PG MCHC 33.0 (30-36) % RDW 13.2 (11.6-14.8) % Plt Count 250 (150-400) X10^3/uL Neut % (Auto) 53.6 (50-75) % Lymph % (Auto) 30.7 (25-40) % [place] % (Auto) 11.4 (3-14) % Eos % (Auto) 2.8 (2-4) % Baso % (Auto) 1.5 (0-2) % Neut # (Auto) 3900 (4461-2712) /uL Lymph # (Auto) 2200 (9071-9763) /uL [place] # (Auto) 800 (0-900) /uL Eos # (Auto) 200 (0-450) /uL Baso # (Auto) 100 (0-100) /uL Sodium 136 L (137-145) mmol/L Potassium 4.7 (3.4-5.1) mmol/L Chloride 104 (98-107) mmol/L Carbon Dioxide 26 (22-32) mmol/L BUN 21 H (7-17) mg/dL Creatinine 0.87 (0.52-1.04) mg/dL Estimated GFR > 60 (>60) mL/min BUN/Creatinine Ratio 24.1 H (6-22) Glucose 144 H (70-99) mg/dL Calcium 9.0 (8.4-10.2) mg/dL Magnesium 2.1 (1.6-2.3) mg/dL Total Bilirubin 0.8 (0.2-1.3) mg/dL AST 31 (14-36) IU/L ALT 26 (<35) IU/L Alkaline Phosphatase 84 (38-126) U/L Total Protein 7.8 (6.3-8.2) g/dL Albumin 4.2 (3.5-5.0) g/dL Globulin 3.6 (1.7-4.1) g/dL Albumin/Globulin Ratio 1.2 (1.0-2.8) MDM Narrative Medical decision making narrative: 80-year-old female with intermittent bilateral calf cramping anus, no history of restless leg known in, no history of diabetes, no known peripheral neuropathy, had small right medial ankle abrasion not obviously infected, patient has recently been scratching in the area. No obvious eczema or psoriatic skin changes, no obvious impetigo or cellulitis changes. Screening labs sent from triage. Lab data: White blood cell count 7200, hemoglobin 13.5, platelets adequate. Glucose 144. Normal renal function. Serum CO2 26. Sodium 136, potassium 4.7. Calcium and magnesium levels normal as well. Liver functions unremarkable. Slightly low sodium, otherwise potassium magnesium calcium other electrolytes unremarkable. DDx intermittent bilateral lower extremity cramping would consider electrolyte disorder, peripheral neuropathy, restless leg syndrome; doubt DVT, doubt PAD. We discussed nonpharmacological measures lower extremity leg cramping, such as potassium rich foods and vegetables, consideration for taking oral coconut water that is high in potassium, consider multi vitamin including B vitamins. We discussed other measures such as restless like treatments, and benzodiazepines, we will hold for now, defer to PCP after attempted above measures. Patient discharged home. Follow up with PCP. Return precautions discussed. Discharge Plan Departure Patient Disposition: Home Clinical Impression: Bilateral leg cramps Instructions: DI for Nocturnal Leg Cramps Activity Restrictions/Additional Instructions: Bilateral leg cramps of unclear cause. Sometimes symptoms can be due to electrolyte abnormalities. You had a slightly low sodium, but normal potassium and magnesium and calcium levels. You could consider increased intake of potassium rich foods such as leafy green vegetables and bananas. Consider increasing can take of coconut water that is also high in potassium. Consider multivitamin daily that includes B vitamins, that might help your symptoms. There are specific medications at sometimes or helpful for restless leg syndrome, though this might not be restless leg syndrome. Doubt blood clots to legs by history and examination. Recheck symptoms with the above measures with your regular doctor later next week. Return earlier to this/nearest emergency department for any change worsening symptoms or any concerns prior. Prescriptions: No Action No Known Home Medications Referrals: Ashley Munoz MD [Primary Care Provider, Internal Medicine] Stand Alone Forms: Patient Portal/API
[2025-04-30 00:30] VITALS: PULSE 61; O2SAT 96
[2025-04-30 00:31] VITALS: BP 136/67; PULSE 61; O2SAT 95
[2025-04-30 00:57] VITALS: BP 144/63; PULSE 70; O2SAT 98
== END 2025-04-30 01:03 | disposition home or self-care (01) ==
PROVIDERS: Emergency Medicine; Emergency Provider Emergency Medicine; PCP Internal Medicine
DX: R25.2 Cramp and spasm (principal)
CPT/HCPCS: 29105; 36415; 80053; 83735; 85025; 99283